=== PATIENT | male | born 1985 | race African-American/Black ===

== ENCOUNTER 2018-07-26 14:36 | Emergency (ER) | payer SELFPAY | END 2018-07-26 15:45 | disposition left against medical advice (07) | LOC: ER 14:36 | DX: R10.9 Unspecified abdominal pain (principal); Z53.21 Procedure and treatment not carried out due to patient leaving prior to being seen by health care provider ==

== ENCOUNTER 2019-08-07 07:49 | Emergency (ER) | payer SELFPAY ==
[2019-08-07] MEDS ORDERED: CEPHALEXIN 500 MG CAPSULE PO ONE (08:17)
--- NOTE | 2019-08-07 09:20 | ER Document Report ---
ED Eye Complaint - General Chief Complaint: Eye Problem Stated Complaint: LEFT EYE PAIN, IRRITATION TRAVEL OUTSIDE OF THE [place] IN LAST 30 DAYS: No - HPI Patient complains to provider of: left eye irritation Onset: Last week Eye location: Left Occurred at: Home Quality of pain: Burning Severity: Mild Pain Level: Denies Safety glasses worn: No Contact lenses worn: No Associated symptoms: None Notes: 33 year old male has tried lid scrubs and warm compress to left upper eye lid syte for a week. No really improving. No fever or chills. No contact lens. - Related Data Allergies/Adverse Reactions: No Known Allergies Allergy (Verified 08/07/19 07:50) Past Medical History - Social History Smoking Status: Current Every Day Smoker Family History: None Patient has suicidal ideation: No Patient has homicidal ideation: No Endocrine Medical History: Reports: Hx Diabetes Mellitus Type 2 - borderline Renal/ Medical History: Denies: Hx Peritoneal Dialysis Review of Systems - Review of Systems Constitutional: No symptoms reported EENT: See HPI Cardiovascular: No symptoms reported Respiratory: No symptoms reported Gastrointestinal: No symptoms reported Genitourinary: No symptoms reported Male Genitourinary: No symptoms reported Musculoskeletal: No symptoms reported Skin: No symptoms reported Hematologic/Lymphatic: No symptoms reported Neurological/Psychological: No symptoms reported Physical Exam - Vital signs Vitals: Temp Pulse Resp BP Pulse Ox 97.9 F 87 20 138/80 H 97 08/07/19 07:53 08/07/19 07:53 08/07/19 07:53 08/07/19 07:53 08/07/19 07:53 Interpretation: Normal - General General appearance: Appears well, Alert - HEENT Head: Normocephalic, Atraumatic Eyes: Other - mild erythema and sts consistent with hordeolum left upper lid Pupils: PERRL Visual acuity- Right eye: 20/30 Visual acuity- Left eye: 20/40 Corrective lenses worn: No - Respiratory Respiratory status: No respiratory distress Chest status: Nontender Breath sounds: Normal Chest palpation: Normal - Cardiovascular Rhythm: Regular Heart sounds: Normal auscultation Murmur: No - Abdominal Inspection: Normal Distension: No distension Bowel sounds: Normal Tenderness: Nontender Organomegaly: No organomegaly - Back Back: Nontender - Extremities General upper extremity: Normal inspection, Nontender, Normal color, Normal ROM, Normal temperature General lower extremity: Normal inspection, Nontender, Normal color, Normal ROM, Normal temperature, Normal weight bearing. No: Keven's sign - Neurological Neuro grossly intact: Yes Cognition: Normal Orientation: AAOx4 [place] Coma Scale Eye Opening: Spontaneous [place] Coma Scale Verbal: Oriented [place] Coma Scale Motor: Obeys Commands [place] Coma Scale Total: 15 Speech: Normal Motor strength normal: LUE, RUE, LLE, RLE Sensory: Normal - Psychological Associated symptoms: Normal affect, Normal mood - Skin Skin Temperature: Warm Skin Moisture: Dry Skin Color: Normal Course - Vital Signs Vital signs: Temp Pulse Resp BP Pulse Ox 97.9 F 87 20 138/80 H 97 08/07/19 07:53 08/07/19 07:53 08/07/19 07:53 08/07/19 07:53 08/07/19 07:53 Discharge - Discharge Clinical Impression: Hordeolum externum (stye) Qualifiers: Laterality: left Eyelid: upper Qualified Code(s): H00.014 - Hordeolum externum left upper eyelid Condition: Good Disposition: HOME, SELF-CARE Instructions: Antibiotic Therapy ([facility]), Eyedrop Use ([facility]) Additional Instructions: Take the medicine as directed. Please return here for any problems or concerns. Prescriptions: Erythromycin Base [Erythromycin Oph 1 gm Oint Ud] 1 applic OP QID #1 tube Cephalexin Monohydrate [Keflex 500 mg Capsule] 500 mg PO TID #30 capsule
[2019-08-07 09:38] VITALS: BP 130/89
== END 2019-08-07 09:38 | disposition home or self-care (01) ==
LOC: ER 07:49
DX: H00.014 Hordeolum externum left upper eyelid (principal); F17.200 Nicotine dependence, unspecified, uncomplicated
CPT/HCPCS: 99283

== ENCOUNTER 2020-10-16 05:58 | Emergency (ER) | payer SELFPAY ==
[2020-10-16] MEDS ORDERED: NORMAL SALINE 1000 ML 1,000 ML IV ONE (07:49)
[2020-10-16] MEDS ORDERED: PROCHLORPERAZINE EDISYLATE INJ 10 MG/2 ML VIAL IV ONE (07:49)
[2020-10-16] MEDS ORDERED: DIPHENHYDRAMINE HCL 50 MG/ML VIAL IV ONE (07:49)
[2020-10-16] MEDS ORDERED: TETRACAINE HCL 0.5% OPH SOLN 4 ML OS ONE (07:50)
--- NOTE | 2020-10-16 08:38 | ER Document Report ---
Entered by MARIA DEL CARMEN SAMANIEGO SCRIBE 10/16/20 0747 Acting as scribe for:MARIA R BARRAZA MD ED Headache - General Chief Complaint: Headache >24 hrs old Stated Complaint: HEADACHE Time Seen by Provider: 10/16/20 07:38 Mode of Arrival: Ambulatory Information source: Patient Notes: This 35 year old male patient presents to the ED today with complaints of a intermittent left-sided headache for the past x1 week, worse this morning. Patient reports associated pressure behind his left eye and states that his left eyelid has been swelling shut intermittently for the past x1 year. He notes that the swelling usually resolves after applying some type of antihistamine eye dr layton Denies fever. TRAVEL OUTSIDE OF THE [place] IN LAST 30 DAYS: No - Related Data Allergies/Adverse Reactions: No Known Allergies Allergy (Verified 10/16/20 06:07) Past Medical History - General Information source: Patient, [facility] Records - Social History Smoking Status: Current Every Day Smoker Cigarette use (# per day): Yes - 0.5 ppd Chew tobacco use (# tins/day): No Smoking Education Provided: No Frequency of alcohol use: None Drug Abuse: None Lives with: Spouse/Significant other Family History: Reviewed & Not Pertinent Patient has suicidal ideation: No Patient has homicidal ideation: No Endocrine Medical History: Reports: Hx Diabetes Mellitus Type 2 - borderline Review of Systems - Review of Systems Constitutional: See HPI, Fever EENT: See HPI, Eye pain - and eyelid swelling Cardiovascular: No symptoms reported Respiratory: No symptoms reported Gastrointestinal: No symptoms reported Genitourinary: No symptoms reported Male Genitourinary: No symptoms reported Musculoskeletal: No symptoms reported Skin: No symptoms reported Hematologic/Lymphatic: No symptoms reported Neurological/Psychological: See HPI, Headaches -: Yes All other systems reviewed and negative Physical Exam - Vital signs Vitals: Temp Pulse Resp BP Pulse Ox 98.0 F 62 16 130/115 H 99 10/16/20 06:04 10/16/20 06:04 10/16/20 06:04 10/16/20 06:04 10/16/20 06:04 - General General appearance: Alert, Anxious - HEENT Head: Normocephalic, Atraumatic, Tenderness - Left scalp from front to back is very tender to palpate. Right scalp is nontender. Patient becomes anxious and diaphoretic with continued palpation of his scalp. Eyes: Other - Palpating the globe of the left eye is very painful Pupils: PERRL Neck: Other - Posterior cervical musculature tenderness to palpation - Respiratory Respiratory status: No respiratory distress Chest status: Nontender Breath sounds: Normal Chest palpation: Normal - Cardiovascular Rhythm: Regular Heart sounds: Normal auscultation Murmur: No Friction rub: No Gallop: None auscultated - Abdominal Inspection: Normal Distension: No distension Bowel sounds: Normal Tenderness: Nontender - Abdomen soft Organomegaly: No organomegaly - Back Back: Normal, Nontender - Extremities General upper extremity: Normal inspection General lower extremity: Normal inspection. No: Edema - Neurological Neuro grossly intact: Yes Orientation: AAOx4 [place] Coma Scale Eye Opening: Spontaneous [place] Coma Scale Verbal: Oriented [place] Coma Scale Motor: Obeys Commands [place] Coma Scale Total: 15 - Psychological Associated symptoms: Anxious - Skin Skin Temperature: Warm Skin Moisture: Dry Skin Color: Normal Course - Re-evaluation Re-evalutation: 10/16/20 09:07 Patient has had about 500 mils normal saline IV, 25 mg Benadryl IV and 10 mg Compazine IV. He was napping. When I woke him up, he said his headache feels much better and his eye was not hurting. Palpating the scalp of his head shows only minimal tenderness on the left side now and posterior cervical muscles are only a little tender on the left side. Palpating the left eye globe is only slightly tender. I did attempt to get IOP from the left eye after placing tetracaine drops. There seems to be a malfunction of the machine because the amount of pressure re quired to get it to click was excessive. I did not push hard enough to get to click on his eye, but I tried it on semifirm surfaces and found that the pressure required was far above what I am used to. Given that his eye is not really red, is not tearing, is greatly improved along with his obvious muscle contraction/tension headache, and the pains have been intermittent for quite some time, it is unlikely this is an intraocular pressure problem. 10/16/20 10:09 Patient was sleeping. I woke him back up. He states his headache is gone, he feels much better. He states he really did not get much sleep last night. - Vital Signs Vital signs: Temp Pulse Resp BP Pulse Ox 98.0 F 62 16 124/95 H 99 10/16/20 06:04 10/16/20 06:04 10/16/20 06:04 10/16/20 09:02 10/16/20 06:04 - Laboratory Result Diagrams: 10/16/20 08:44 10/16/20 08:44 Laboratory results interpreted by me: 10/16/20 10/16/20 08:44 08:44 RDW 14.7 H ESR 17 H Glucose 116 H Discharge - Discharge Clinical Impression: Muscle tension headache Condition: Stable Disposition: HOME, SELF-CARE Additional Instructions: Tension Headache: Your problem has been diagnosed as muscle tension headache. This very common type of headache occurs because of tightness in the muscles of the head and neck. The cause may be neck or jaw joint problems, but most commonly the cause is emotional stress. The headache may last hours or days. The treatment of uncomplicated tension headaches is rest and pain medication. Often, the newer antiinflammatory pain medications are prescribed, as these also decrease the irritability of the painful tissues. Muscle relaxers, cold packs, or warm packs are sometimes helpful. Anti-anxiety medic ation or narcotics are sometimes needed temporarily, but are best avoided in the long run. Your doctor has evaluated your headache problem, and finds no evidence of a serious health problem as a cause for the headache. If your headache becomes more severe, or if new symptoms develop (such as fever, stiff neck, vomiting, or decreasing alertness) you should be re-examined by the physician. Try the Fioricet as prescribed for your tension headaches. If you find that does not relieve the headache, then take one of the Compazine 10mg along with an [id number] Benadryl 25 mg, and lay down and try to sleep in a cool, dark, quiet room. Follow-up with your primary care provider if you continue to have these headaches. RETURN TO THE EMERGENCY ROOM IF ANY NEW OR WORSENING SYMPTOMS. Prescriptions: Prochlorperazine Maleate [Compazine 10 mg Tablet] 10 mg PO ASDIR PRN #10 tablet PRN Reason: Butalb/Acetaminophen/Caffeine [Fioricet (50-325-40 mg) Tablet] 2 tab PO Q4H PRN #20 tab PRN Reason: Forms: Return to Work I personally performed the services described in the documentation, reviewed and edited the documentation which was dictated to the scribe in my presence, and it accurately records my words and actions.
[2020-10-16 08:58] LABS: ABSOLUTE MONOCYTES (AUTO) 0.8 10^3/uL (0.1-1.4); ABSOLUTE NEUT (AUTO) 3.9 10^3/uL (1.7-8.2); BASOPHILS % (AUTO) 0.5 % (0-2); EOSINOPHILS % (AUTO) 0.6 % (0-6); HEMATOCRIT 42.4 % (37.9-51.0); HEMOGLOBIN 14.2 g/dL (13.5-17.0); MEAN CORPUSCULAR HEMOGLOBIN 30.6 pg (27.0-33.4); MEAN CORPUSCULAR HGB CONC 33.5 g/dL (32.0-36.0); MEAN CORPUSCULAR VOLUME 91 fl (80-97); MONOCYTES % (AUTO) 11.3 % (3-13); PLATELET COUNT 212 10^3/uL (150-450); RED BLOOD COUNT 4.65 10^6/uL (4.35-5.55); RED CELL DISTRIBUTION WIDTH 14.7 % (11.5-14.0); SEGMENTED NEUTROPHILS % (AUTO) 57.6 % (42-78); TOTAL CELLS COUNTED % (AUTO) 100 %; WHITE BLOOD COUNT 6.7 10^3/uL (4.0-10.5)
[2020-10-16 09:03] VITALS: BP 124/95
[2020-10-16 09:18] LABS: ALBUMIN 4.1 g/dL (3.5-5.0); ALKALINE PHOSPHATASE 84 U/L (38-126); ANION GAP 8 (5-19); ASPARTATE AMINO TRANSFERASE 17 U/L (17-59); BILIRUBIN,DIRECT 0.1 mg/dL (0.0-0.4); BILIRUBIN,TOTAL 0.6 mg/dL (0.2-1.3); BLOOD UREA NITROGEN 13 mg/dL (7-20); C-REACTIVE PROTEIN 5.1 mg/L (<10.0); CALCIUM 9.2 mg/dL (8.4-10.2); CARBON DIOXIDE 29 mmol/L (22-30); CHLORIDE 103 mmol/L (98-107); GLUCOSE 116 mg/dL (75-110); POTASSIUM 3.8 mmol/L (3.6-5.0)
[2020-10-16 09:43] LABS: ERYTHROCYTE SEDIMENTATION RATE 17 mm/hr (0-15)
== END 2020-10-16 10:42 | disposition home or self-care (01) ==
LOC: ER 05:58
DX: G44.209 Tension-type headache, unspecified, not intractable (principal); H57.12 Ocular pain, left eye; R50.9 Fever, unspecified; H57.89 Other specified disorders of eye and adnexa; F41.9 Anxiety disorder, unspecified; E11.9 Type 2 diabetes mellitus without complications; F17.210 Nicotine dependence, cigarettes, uncomplicated
CPT/HCPCS: 99284; 96361; 96374; 96375; 36415; 85025; 85652; 86140; 80053; J1200; J0780; J7030; J3490